=== PATIENT | male | born 1960 | race African-American/Black ===

== ENCOUNTER 2018-02-15 22:09 | Emergency (ER) | payer SELFPAY ==
[~2018-02-15] VITALS: Ht 182.9 cm; Wt 111.1 kg
[2018-02-15] MEDS ORDERED: IV NORMAL SALINE 1,000ML 1,000 ML IV SCH (22:27)
--- NOTE | 2018-02-15 22:46 | PHYS DOC ---
Past History Past Medical History: Hypertension, Pneumonia, Other Past Surgical History: Other Alcohol Use: Occasionally Drug Use: None Adult General Chief Complaint Chief Complaint: BACK PAIN - NO INJURY HPI HPI Patient is a 57 year old male who presents with complaint of midthoracic back pain. Patient states his symptoms started approximately one week ago and have been persistent throughout the week. Patient states that he also developed pain in his left upper extremity approximately the same time that he started having pain in his middle back. Denies any known injury. Patient has not had any associated shortness of breath, fever, or nausea. Denies chest pain currently. Patient does not follow with a primary doctor and is not treated for any medical conditions. Denies any known history of heart disease. Patient states he 's been taking ibuprofen with no relief in symptoms. Symptoms do not seem to be exacerbated by movement at this time. Patient states that they do seem to worsen when he lays down at nighttime to sleep. Review of Systems Review of Systems Constitutional: Denies fever or chills [] Eyes: Denies change in visual acuity, redness, or eye pain [] HENT: Denies nasal congestion or sore throat [] Respiratory: Denies cough or shortness of breath [] Cardiovascular: Denies chest pain or edema[] GI: Denies abdominal pain, nausea, vomiting, bloody stools or diarrhea [] : Denies dysuria or hematuria [] Musculoskeletal: Back pain[] Integument: Denies rash or skin lesions [] Neurologic: Denies headache, focal weakness or sensory changes [] All other systems were reviewed and found to be within normal limits, except as documented in this note. Current Medications Current Medications Current Medications Medications (Trade) Dose Ordered Sig/Beatriz Start Time Stop Time Status Last Admin Dose Admin Sodium Chloride 1,000 ml @ 125 mls/hr Q8H 02/15/18 22:27 02/16/18 06:26 UNV Allergies Allergies Allergies Coded Allergies Type Severity Reaction Last Updated Verified No Known Drug Allergies 02/15/18 No Physical Exam Physical Exam Constitutional: Alert, afebrile, hypertensive, no acute distress. [] HENT: Normocephalic, atraumatic, bilateral external ears normal, oropharynx moist, no oral exudates, nose normal. [] Eyes: PERRLA, EOMI, conjunctiva normal, no discharge. [] Neck: Normal range of motion, no tenderness, supple, no stridor. [] Cardiovascular:Heart rate regular rhythm, no murmur [] Lungs & Thorax: Bilateral breath sounds clear to auscultation [] Abdomen: Bowel sounds normal, soft, no tenderness, no masses, no pulsatile masses. [] Skin: Warm, dry, no erythema, no rash. [] Back: No tenderness, no CVA tenderness. [] Extremities: No tenderness, no cyanosis, no clubbing, ROM intact, no edema. [] Neurologic: Alert and oriented X 3, normal motor function, normal sensory function, no focal deficits noted. [] Current Patient Data Vital Signs Vital Signs Date Time Temp Pulse Resp B/P (MAP) Pulse Ox O2 Delivery O2 Flow Rate FiO2 02/15/18 22:15 98.0 78 20 98 Room Air Lab Results Laboratory Tests Test 02/15/18 22:25 02/15/18 23:25 White Blood Count 5.6 x10^3/uL Red Blood Count 4.85 x10^6/uL Hemoglobin 14.7 g/dL Hematocrit 43.3 % Mean Corpuscular Volume 89 fL Mean Corpuscular Hemoglobin 30 pg Mean Corpuscular Hemoglobin Concent 34 g/dL Red Cell Distribution Width 13.6 % Platelet Count 253 x10^3/uL Neutrophils (%) (Auto) 53 % Lymphocytes (%) (Auto) 32 % Monocytes (%) (Auto) 11 % Eosinophils (%) (Auto) 3 % Basophils (%) (Auto) 2 % Neutrophils # (Auto) 2.9 x10^3uL Lymphocytes # (Auto) 1.8 x10^3/uL Monocytes # (Auto) 0.6 x10^3/uL Eosinophils # (Auto) 0.2 x10^3/uL Basophils # (Auto) 0.1 x10^3/uL Prothrombin Time 10.5 SEC Prothromb Time International Ratio 1.1 Activated Partial Thromboplast Time 29 SEC Sodium Level 140 mmol/L Potassium Level 3.9 mmol/L Chloride Level 106 mmol/L Carbon Dioxide Level 25 mmol/L Anion Gap 9 Blood Urea Nitrogen 13 mg/dL Creatinine 1.1 mg/dL Estimated GFR (Cockcroft-Gault) 84.1 BUN/Creatinine Ratio 12 Glucose Level 121 mg/dL Calcium Level 9.2 mg/dL Total Bilirubin 0.2 mg/dL Aspartate Amino Transf (AST/SGOT) 23 U/L Alanine Aminotransferase (ALT/SGPT) 35 U/L Alkaline Phosphatase 116 U/L Troponin I Quantitative < 0.017 ng/mL Total Protein 7.3 g/dL Albumin 3.8 g/dL Albumin/Globulin Ratio 1.1 Lipase 172 U/L Urine Collection Type Unknown Urine Color Yellow Urine Clarity Clear Urine pH 7.0 Urine Specific [place] 1.020 Urine Protein Neg Urine Glucose (UA) Neg mg/dL Urine Ketones (Stick) Neg mg/dL Urine Blood Neg Urine Nitrite Neg Urine Bilirubin Neg Urine Urobilinogen Dipstick 0.2 mg/dL Urine Leukocyte Esterase Neg Urine RBC 0 /HPF Urine WBC 5-10 /HPF Urine Squamous Epithelial Cells Occ /LPF Urine Bacteria Few /HPF Current Medications Medications (Trade) Dose Ordered Sig/Beatriz Route PRN Reason Start Time Stop Time Status Last Admin Dose Admin Sodium Chloride 1,000 ml @ 125 mls/hr Q8H IV 02/15/18 22:27 02/16/18 06:26 02/15/18 23:03 Iohexol (Omnipaque 300 Mg/ml) 50 ml 1X ONCE IV 02/15/18 23:30 02/15/18 23:31 DC Iohexol (Omnipaque 300 Mg/ml) 50 ml 1X ONCE IV 02/15/18 23:30 02/15/18 23:31 DC Info (Do NOT chart on this entry -- for MONITORING) 1 each PRN DAILY PRN MC SEE COMMENTS 02/15/18 23:30 02/17/18 23:29 EKG EKG Interpreted by me: Heart rate 76, sinus rhythm, normal intervals, normal axis, no acute ST/T-wave abnormalities present[] Radiology/Procedures Radiology/Procedures One view AP chest x-ray interpreted by me: No infiltrate, emphysematous changes in bilateral upper lobes and left lower lobe, normal cardiac silhouette [address] [id number] IMAGING REPORT Signed PATIENT: LATASHA CRAIN ACCOUNT: [id number] : 1960 LOCATION: ER AGE: 57 SEX: M EXAM STATUS: REG ER ORD. PHYSICIAN: HAMILTON GRANDA MD REASON: mid back pain, hypertension, rule out aortic dissection PROCEDURE: CT ANGIO CHEST ABD PELVIS PQRS Compliance statement: One or more of the following individualized dose reduction techniques were utilized for this examination: 1. Automated exposure control. 2. Adjustment of the mA and/or kV according to patient size. 3. Use of iterative reconstruction technique. Indication:CHEST PAIN, BACK PAIN, SHORTNESS OF BREATH, R/O PE AND DISSECTION> TECHNIQUE: CT angiogram of the chest, abdomen and pelvis with IV contrast with multiplanar MIP reformats. COMPARISON: None FINDINGS: Slightly suboptimal PE study and aortic angiographic study due to contrast bolus timing. There is no central, segmental filling defects in the pulmonary arteries. Evaluation of distal subsegmental pulmonary arteries limited. Heart is normal in size. No pericardial or pleural effusion. There is no evidence of intrahepatic aneurysm. The aorta is not well opacified for an angiographic study.. Clear neck base. 2.0 x 1.4 cm enlarged left axillary lymph node. Calcified mediastinal lymph nodes are seen. Mildly enlarged bilateral hilar lymph nodes are seen, the largest on the right side measuring 1.6 x 1.3 cm and on the left side measuring 1.9 x 1.5 cm. Bilateral paraseptal emphysema with large bulla in the left anterior upper lobe measuring approximately 13.3 x 7.3 centimeter. No pneumothorax. Mild patchy opacity in the right middle lobe (series 6 image 67). 3 mm subpleural nodule in the left lung apex (series 6 image 17). No obvious dissection flap is seen in the aorta. The celiac axis, SMA, bilateral renal arteries, JAK, bilateral common iliac arteries are patent. No free pelvic fluid or ascites. No bowel obstruction. Liver, spleen, gallbladder, pancreas, adrenals and kidneys are within normal limits. No enlarged retroperitoneal or pelvic adenopathy. Urinary bladder within normal limits. The prostate and seminal vesicles show no large mass. No suspicious bony lesion. IMPRESSION: 1. Suboptimal PE study and angiographic aortic study due to contrast bolus timing. No apparent central or segmental PE. No aortic aneurysm or apparent dissection flap seen. 2. Mildly enlarged bilateral hilar and left axillary enlarged lymph nodes nonspecific likely reactive. 3. Significant emphysematous changes in the lungs with large bulla in the left upper lobe. 4. Nonspecific patchy opacity in the right middle lobe and nodular opacity in the left lung apex. Follow-up CT chest in 6 months recommended. Electronically signed by: Wei Cho, DO (02/16/2018 12:03 AM) [facility] DICTATED AND SIGNED BY: WEI CHO DO DATE: 02/15/18 [id number] CC: HAMILTON GRANDA MD; PCP,RUSSELL ~ [] Course & Med Decision Making Course & Med Decision Making Pertinent Labs and Imaging studies reviewed. (See chart for details) CT imaging shows no evidence of aortic dissection or aneurysm. Troponin was negative. Given the patient's symptoms have been constant over the past 9 days, one troponin was deemed sufficient to rule out acute myocardial infarction. Symptoms appear consistent with acute musculoskeletal back pain. Patient will be prescribed ibuprofen and Flexeril for continued outpatient therapy. Advised follow-up in one week with primary doctor for reevaluation. Due to emphysematous changes on imaging, I did career placement services counselor the patient on need for smoking cessation. Advised return to emergency department for any worsening symptoms. Patient was understanding and in agreement with treatment plan. Dragon Disclaimer Dragon Disclaimer This electronic medical record was generated, in whole or in part, using a voice recognition dictation system. Departure Departure: Impression: Primary Impression: Acute thoracic back pain Disposition: HOME, SELF-CARE Condition: IMPROVED Referrals: PCP,RUSSELL (PCP) Patient Instructions: Back Pain, Adult Additional Instructions: Follow-up with your primary doctor in 1 week for reevaluation. Return to the emergency department for any worsening symptoms. Scripts Ibuprofen (IBUPROFEN) 600 Mg Tablet 600 MG PO Q6HRS PRN for PAIN, #30 TAB Prov: HAMILTON GRANDA MD 02/16/18 Cyclobenzaprine Hcl (CYCLOBENZAPRINE HCL) 10 Mg Tablet 1 TAB PO TID PRN for MUSCLE PAIN, #30 TAB Prov: HAMILTON GRANDA MD 02/16/18 Problem Qualifiers Primary Impression: Acute thoracic back pain Back pain laterality: left Qualified Codes: M54.6 - Pain in thoracic spine HAMILTON GRANDA MD Feb 15, 2018 22:46
[2018-02-15 22:52] LABS: BASO # 0.1 x10^3/uL (0.0-0.2); BASO % 2 % (0-3); EOS # 0.2 x10^3/uL (0.0-0.7); EOS % 3 % (0-3); HEMATOCRIT 43.3 % (39.0-53.0); HEMOGLOBIN 14.7 g/dL (13.0-17.5); LYMPH # 1.8 x10^3/uL (1.0-4.8); LYMPH % 32 % (24-48); MEAN CORPUSCULAR HEMOGLOBIN 30 pg (25-35); MEAN CORPUSCULAR HGB CONC 34 g/dL (31-37); MEAN CORPUSCULAR VOLUME 89 fL (79-100); MONO # 0.6 x10^3/uL (0.0-1.1); MONO % 11 % (0-9); NEUT # 2.9 x10^3uL (1.8-7.7); NEUT % 53 % (31-73); PLATELET COUNT 253 x10^3/uL (140-400); RED BLOOD COUNT 4.85 x10^6/uL (4.30-5.70); RED CELL DISTRIBUTION WIDTH 13.6 % (11.5-14.5); WHITE BLOOD COUNT 5.6 x10^3/uL (4.0-11.0)
[2018-02-15 23:04] LABS: ALBUMIN 3.8 g/dL (3.4-5.0); ALBUMIN/GLOBULIN RATIO 1.1 (1.0-1.7); CALCIUM 9.2 mg/dL (8.5-10.1); CREATININE 1.1 mg/dL (0.7-1.3); GFR 84.1; POTASSIUM 3.9 mmol/L (3.5-5.1); TOTAL BILIRUBIN 0.2 mg/dL (0.2-1.0); TOTAL PROTEIN 7.3 g/dL (6.4-8.2)
[2018-02-15] MEDS ORDERED: IOHEXOL 300 MG/ML 50 ML VIAL. IV ONE ×2 (23:30)
[2018-02-15] MEDS ORDERED: CONTRAST GIVEN MC PRN (23:30)
[2018-02-15 23:56] LABS: BACTERIA,URINE FEW /HPF (0-FEW); BILIRUBIN,URINE NEG (NEG); CLARITY,URINE CLEAR; COLOR,URINE YELLOW; GLUCOSE,URINE NEG (NEG); NITRITE,URINE NEG (NEG); RBC,URINE 0 /HPF (0-2); SQUAMOUS EPITHELIAL CELL,UR OCC /LPF; UROBILINOGEN,URINE 0.2 mg/dL (0.2 mg/dL)
--- NOTE | 2018-02-16 00:07 | RAD ---
PQRS Compliance statement: One or more of the following individualized dose reduction techniques were utilized for this examination: 1. Automated exposure control. 2. Adjustment of the mA and/or kV according to patient size. 3. Use of iterative reconstruction technique. Indication:CHEST PAIN, BACK PAIN, SHORTNESS OF BREATH, R/O PE AND DISSECTION> TECHNIQUE: CT angiogram of the chest, abdomen and pelvis with IV contrast with multiplanar MIP reformats. COMPARISON: None FINDINGS: Slightly suboptimal PE study and aortic angiographic study due to contrast bolus timing. There is no central, segmental filling defects in the pulmonary arteries. Evaluation of distal subsegmental pulmonary arteries limited. Heart is normal in size. No pericardial or pleural effusion. There is no evidence of intrahepatic aneurysm. The aorta is not well opacified for an angiographic study.. Clear neck base. 2.0 x 1.4 cm enlarged left axillary lymph node. Calcified mediastinal lymph nodes are seen. Mildly enlarged bilateral hilar lymph nodes are seen, the largest on the right side measuring 1.6 x 1.3 cm and on the left side measuring 1.9 x 1.5 cm. Bilateral paraseptal emphysema with large bulla in the left anterior upper lobe measuring approximately 13.3 x 7.3 centimeter. No pneumothorax. Mild patchy opacity in the right middle lobe (series 6 image 67). 3 mm subpleural nodule in the left lung apex (series 6 image 17). No obvious dissection flap is seen in the aorta. The celiac axis, SMA, bilateral renal arteries, JAK, bilateral common iliac arteries are patent. No free pelvic fluid or ascites. No bowel obstruction. Liver, spleen, gallbladder, pancreas, adrenals and kidneys are within normal limits. No enlarged retroperitoneal or pelvic adenopathy. Urinary bladder within normal limits. The prostate and seminal vesicles show no large mass. No suspicious bony lesion. IMPRESSION: 1. Suboptimal PE study and angiographic aortic study due to contrast bolus timing. No apparent central or segmental PE. No aortic aneurysm or apparent dissection flap seen. 2. Mildly enlarged bilateral hilar and left axillary enlarged lymph nodes nonspecific likely reactive. 3. Significant emphysematous changes in the lungs with large bulla in the left upper lobe. 4. Nonspecific patchy opacity in the right middle lobe and nodular opacity in the left lung apex. Follow-up CT chest in 6 months recommended. Electronically signed by: Wei Morgan DO (02/16/2018 12:03 AM) [facility]
[2018-02-16 00:16] VITALS: BP 159/91
[2018-02-16] MEDS ORDERED: CYCL-331 PO (00:33)
[2018-02-16] MEDS ORDERED: IBUP600T16 PO (00:33)
--- NOTE | 2018-02-16 06:34 | RAD ---
Indication:CHEST PAIN, BACK PAIN, HTN TECHNIQUE:Portable AP chest X-ray COMPARISON:None FINDINGS: Heart is normal in size. Diffuse emphysematous changes seen with large left upper lobe bulla. No pneumothorax or pleural effusion. Visualized bony thorax within normal limits. IMPRESSION: Diffuse emphysema with bullous disease. No acute pulmonary process. Electronically signed by: Wei Morgan DO (02/16/2018 6:30 AM) [facility]
--- NOTE | 2018-02-18 18:24 | EKG ---
[address] [address] Test Date: 2018-02-15 Test Time: 22:30:07 Pat Name: LATASHA CRAIN Department: Room: Gender: M Manufacturing Process Technician: : 1960 Requested By: HAMILTON GRANDA Order Number: [id number] Reading MD: Pratik Pacheco Measurements Intervals [place] Rate: 76 P: 57 CT: 198 QRS: 63 QRSD: 92 T: 52 QT: 368 QTc: 418 Interpretive Statements SINUS RHYTHM Electronically Signed On 02-19-2018 12:05:21 CDT by Pratik Pacheco
== END 2018-02-16 00:45 | disposition home or self-care (01) ==
LOC: ER 22:09
DX: M54.6 Pain in thoracic spine (principal); I10 Essential (primary) hypertension; J43.9 Emphysema, unspecified; R59.9 Enlarged lymph nodes, unspecified; M79.642 Pain in left hand
CPT/HCPCS: 36415; 71045; 71275; 74174; 80053; 81001; 83690; 84484; 85025; 85610; 85730; 87086; 93005; 99285-25; J7030